=== PATIENT | male | born 1980 | race Hispanic/Latino ===

== ENCOUNTER 2017-07-12 10:38 | Day surgery (SDC) | payer SELFPAY ==
[~2017-07-12] VITALS: Ht 160 cm; Wt 57.2 kg
[~2017-07-12 10:38] MED LIST: ALUM-MAG HYDRO360 ML PO; AMBIEN10 MG PO; ARTIFICIALS TEA30 ML BOTH EYES; ASPERCREME L177.4 ML TP; BISAC-EVAC10 MG PR; CALMOSEPTINE O3.5 GM TP; CARVEDILOL3.125 MG PO; COLACE100 MG PO; CYMBALTA60 MG PO; DESYREL 150 MG150 MG PO; DITROPAN5 MG PO; DORIBAX500 MG IV; DULCOLAX10 MG PR; FLECTOR 1.3%1 PATC1 TD; FLEET ENEMA-AD118 ML PR; GLUCOPHAGE XR750 MG PO; HUMULIN R100 UNITS/ SC; Heparin Sodium SC; LANTUS 3 M100 UNITS1 SC; LIORESAL I500 MCG/1 IT; MELOXICAM7.5 MG PO; MIDODRINE HCL2.5 MG PO; MIRALAX17 GM PO; Maalox, Mylanta PO; NEURONTIN300 MG PO; NEURONTIN400 MG PO; NIZORAL 2% CREA15 GM TP; NIZORAL SHAMPO120 ML TP; NOVOLOG PE100 UNITS/ SC; OXYCODONE HCL10 MG PO; OXYCONTIN10 MG PO; OXYCONTIN15 MG PO; PAIN RELIEF325 MG PO; PERCOCET 5/31 TABLET PO; SENNA LAX8.6 MG PO; TOBRAMYCIN SULFATE IV; TRAMADOL HCL50 MG PO; TRAZODONE HCL100 MG PO; TYLENOL REGULA325 MG PO; Vancomycin IV; ZYRTEC10 M1 PO
[2017-07-12 10:56] LABS: POINT-OF-CARE METER ID UU14174212
[2017-07-12 11:57] LABS: METH RESISTANT S AUREUS PCR NEGATIVE (NEGATIVE)
[2017-07-12 12:00] LABS: PROBE CHECK PASS; SPECIMEN PROCESSING CONTROL PASS
[2017-07-12 12:23] VITALS: BP 135/91
[2017-07-12 15:43] LABS: POINT-OF-CARE METER ID UU13113675
[2017-07-12 16:18] VITALS: BP 120/67
[2017-07-12 16:41] VITALS: BP 126/78
[2017-07-13] MEDS ORDERED: ARTIFICIAL TEAR15 M1 BOTH EYES (14:13)
== END 2017-07-12 16:59 ==
LOC: SDC 10:38
PROVIDERS: Neurological Surgery
DX: Z45.49 Encounter for adjustment and management of other implanted nervous system device (principal); G82.50 Quadriplegia, unspecified; M62.838 Other muscle spasm; E11.9 Type 2 diabetes mellitus without complications; K21.9 Gastro-esophageal reflux disease without esophagitis; Z79.84 Long term (current) use of oral hypoglycemic drugs; Z87.828 Personal history of other (healed) physical injury and trauma
CPT/HCPCS: 82948; 87641; C1772; J0690; J2405; J3010; J3370

== ENCOUNTER 2017-07-13 02:14 | Inpatient (IN) | payer OTHER ==
[2017-07-13] VITALS (26 sets, daily range): BP systolic 57–211; BP diastolic 34–198
[~2017-07-13] VITALS: Ht 162.6 cm; Wt 60.8 kg
[2017-07-13 03:32] LABS: ADD MIUA? YES; BILIRUBIN NEGATIVE; BLOOD LARGE; COLOR YELLOW ((YELLOW)); GLUCOSE (STRIP) 50; KETONES NEGATIVE; LEUKOCYTES LARGE; NITRITE POSITIVE; PROTEIN (STRIP) 100; SPECIFIC GRAVITY 1.005 (1.000-1.030); UROBILINOGEN 0.2 MG/DL (0.2-1.0)
[2017-07-13 03:51] LABS: AMORPHOUS PHOSPHATE CRYSTALS 2+; BACTERIA 1+ /HPF; CRYSTALS PRESENT; EPITHELIAL CELLS 1+ /HPF; MUCUS 2+ /LPF; UCUL ADDED? YES; WHITE BLOOD CELLS 15-20 /HPF (0-5)
[2017-07-13 03:58] LABS: EOSINOPHIL (%) 0.1 % (0-5); HEMATOCRIT 58.4 % (38.0-50.0); IMMATURE GRANULOCYTE (%) 0.4 % (0.0-0.7); IMMATURE GRANULOCYTE COUNT 0.1 K/uL; INSTRUMENT ABS NEUTROPHIL CT 17.3 K/uL; LYMPHOCYTE COUNT 1.2 K/uL (1.0-2.8); MCH 29.4 PG (29.0-34.0); MCV 91.8 FL (86-99); MEAN PLAT.VOLUME 10.5 uM^3 (9.0-12.4); MONOCYTE (%) 4.9 % (3-12); NEUTROPHIL (%) 88.2 % (45-76); NEUTROPHIL COUNT 17.3 K/uL (1.8-6.4); PLATELET COUNT 288 K/uL (156-360); RBC DIS.WIDTH-CV 13.2 % (11.8-14.6); RBC DIS.WIDTH-SD 44.8 % (39-53); RED BLOOD COUNT 6.36 M/uL (4.00-5.50); WHITE BLOOD COUNT 19.6 K/uL (4.1-10.2)
[2017-07-13 05:42] LABS: ANION GAP 10 MEQ/L (2-14); CHLORIDE 102 MEQ/L (99-109); GFR ESTIMATE (CALCULATED) > 59 mL/min/; GLUCOSE 188 mg/dL (70-99); POTASSIUM 3.7 MEQ/L (3.7-5.4); SAMPLE HEMOLYSIS CHECK 0; SAMPLE ICTERIC CHECK 0; SAMPLE LIPEMIA CHECK 0; SODIUM 139 MEQ/L (136-147); UREA NITROGEN (BUN) 6 mg/dL (9-23)
[2017-07-13 09:23] LABS: METH RESISTANT S AUREUS PCR NEGATIVE (NEGATIVE)
[2017-07-13 09:24] LABS: PROBE CHECK PASS; SPECIMEN PROCESSING CONTROL PASS
[2017-07-13 11:48] LABS: POINT-OF-CARE METER ID UU13113731
[2017-07-13] MEDS ORDERED: ARTIFICIAL TEAR15 M1 BOTH EYES (14:13)
[2017-07-13 14:14] LABS: EOSINOPHIL (%) 0.3 % (0-5); EOSINOPHIL COUNT 0.1 K/uL (0-0.3); HEMATOCRIT 45.2 % (38.0-50.0); IMMATURE GRANULOCYTE (%) 0.3 % (0.0-0.7); IMMATURE GRANULOCYTE COUNT 0.1 K/uL; INSTRUMENT ABS NEUTROPHIL CT 12.6 K/uL; LYMPHOCYTE COUNT 1.9 K/uL (1.0-2.8); MCHC 31.4 G/DL (30.0-36.0); MCV 95.6 FL (86-99); MEAN PLAT.VOLUME 10.2 uM^3 (9.0-12.4); MONOCYTE (%) 5.4 % (3-12); MONOCYTE COUNT 0.8 K/uL (0-0.8); NEUTROPHIL (%) 81.5 % (45-76); NEUTROPHIL COUNT 12.6 K/uL (1.8-6.4); PLATELET COUNT 233 K/uL (156-360); RBC DIS.WIDTH-CV 13.5 % (11.8-14.6); WHITE BLOOD COUNT 15.5 K/uL (4.1-10.2)
[2017-07-13 14:16] LABS: RED BLOOD COUNT 4.73 M/uL (4.00-5.50)
[2017-07-13 14:50] LABS: POINT-OF-CARE METER ID UU13113731
[2017-07-13 18:17] LABS: POINT-OF-CARE METER ID UU13113731
[2017-07-13 22:05] LABS: POINT-OF-CARE METER ID UU14208751
[2017-07-14] VITALS (28 sets, daily range): BP systolic 62–177; BP diastolic 34–107
[2017-07-14 03:35] LABS: POINT-OF-CARE METER ID UU13113748
[2017-07-14 04:47] LABS: HEMATOCRIT 39.8 % (38.0-50.0); MCH 30.1 PG (29.0-34.0); MCHC 31.7 G/DL (30.0-36.0); MCV 95.2 FL (86-99); MEAN PLAT.VOLUME 10.5 uM^3 (9.0-12.4); PLATELET COUNT 197 K/uL (156-360); RBC DIS.WIDTH-CV 13.7 % (11.8-14.6); RBC DIS.WIDTH-SD 48.2 % (39-53); RED BLOOD COUNT 4.18 M/uL (4.00-5.50); WHITE BLOOD COUNT 10.6 K/uL (4.1-10.2)
[2017-07-14 05:01] LABS: CHLORIDE 110 mEq/L (99-109); POTASSIUM 3.7 mEq/L (3.7-5.4); SODIUM 141 mEq/L (136-147)
[2017-07-14 05:05] LABS: ANION GAP 10 MEQ/L (2-14)
[2017-07-14 05:07] LABS: GFR ESTIMATE (CALCULATED) > 59 mL/min/
[2017-07-14 05:08] LABS: UREA NITROGEN (BUN) 8 mg/dL (9-23)
[2017-07-14 05:10] LABS: GLUCOSE 110 mg/dL (70-99)
[2017-07-14 10:09] LABS: MAGNESIUM 1.6 mg/dL (1.3-2.7)
[2017-07-14 11:51] LABS: POINT-OF-CARE METER ID UU13113748
[2017-07-14 16:26] LABS: POINT-OF-CARE METER ID UU13113748
[2017-07-14 22:21] LABS: POINT-OF-CARE METER ID UU13113748
[2017-07-15] VITALS (13 sets, daily range): BP systolic 106–137; BP diastolic 73–94
[2017-07-15 09:08] LABS: POINT-OF-CARE METER ID UU13113731
[2017-07-15 10:55] LABS: MCH 29.7 PG (29.0-34.0); MCHC 32.4 G/DL (30.0-36.0); MCV 91.6 FL (86-99); PLATELET COUNT 187 K/uL (156-360); RBC DIS.WIDTH-CV 13.3 % (11.8-14.6); RBC DIS.WIDTH-SD 44.9 % (39-53); RED BLOOD COUNT 4.04 M/uL (4.00-5.50); WHITE BLOOD COUNT 5.5 K/uL (4.1-10.2)
[2017-07-15 11:17] LABS: ANION GAP 8 MEQ/L (2-14); CHLORIDE 106 MEQ/L (99-109); GFR ESTIMATE (CALCULATED) > 59 mL/min/; POTASSIUM 3.3 MEQ/L (3.7-5.4); SAMPLE HEMOLYSIS CHECK 0; SAMPLE ICTERIC CHECK 0; SAMPLE LIPEMIA CHECK 0; SODIUM 141 MEQ/L (136-147); UREA NITROGEN (BUN) 5 mg/dL (9-23)
[2017-07-15 11:22] LABS: GLUCOSE 203 mg/dL (70-99)
[2017-07-15 11:33] LABS: VANCOMYCIN, TROUGH 8.4 MCG/ML (10-20)
[2017-07-15 12:02] LABS: POINT-OF-CARE METER ID UU14208751
== END 2017-07-15 14:50 | DRG 698 ==
LOC: EME → EDBD 02:14 → EME 02:14 → 4WEST 06:02 → EDOF 06:02 → 4WEST 06:02 → ENRESERV 06:04 → 4WEST 07:25
PROVIDERS: Emergency Medicine; Internal Medicine Critical Care Medicine; Specialist
DX: T83.511A Infection and inflammatory reaction due to indwelling urethral catheter, initial encounter (principal); N30.00 Acute cystitis without hematuria; B95.2 Enterococcus as the cause of diseases classified elsewhere; B96.4 Proteus (mirabilis) (morganii) as the cause of diseases classified elsewhere; A41.9 Sepsis, unspecified organism; R65.21 Severe sepsis with septic shock; G93.41 Metabolic encephalopathy; E87.2 Acidosis; G90.4 Autonomic dysreflexia; I95.9 Hypotension, unspecified; G82.52 Quadriplegia, C1-C4 incomplete; S14.104S Unspecified injury at C4 level of cervical spinal cord, sequela; Z86.14 Personal history of Methicillin resistant Staphylococcus aureus infection; V89.2XXS Person injured in unspecified motor-vehicle accident, traffic, sequela; N31.9 Neuromuscular dysfunction of bladder, unspecified; G43.909 Migraine, unspecified, not intractable, without status migrainosus; E11.9 Type 2 diabetes mellitus without complications; G89.29 Other chronic pain; M54.9 Dorsalgia, unspecified; K21.9 Gastro-esophageal reflux disease without esophagitis
CPT/HCPCS: 71010; 72131; 74176; 80048; 80202; 81003; 82948; 83605; 83735; 85025; 85025 91; 85027; 87040; 87077; 87081; 87086; 87186; 87641; 87801; 90686; 93005; 94799; 99281; 99284; J0295; J0692; J1650; J1815; J1885; J2060; J2405; J2543; J3010; J3243; J3370; J3475; J7030; J7050

== ENCOUNTER 2017-09-10 23:02 | Inpatient (IN) | payer OTHER ==
[~2017-09-10] VITALS: Ht 165.1 cm; Wt 57.3 kg
[~2017-09-10 23:02] MED LIST changes: +ARTIFICIAL TEAR15 M1 BOTH EYES
[2017-09-10 23:44] LABS: ADD MIUA? YES; BILIRUBIN NEGATIVE; BLOOD LARGE; COLOR YELLOW ((YELLOW)); GLUCOSE (STRIP) NEGATIVE; KETONES NEGATIVE; LEUKOCYTES LARGE; NITRITE NEGATIVE; PROTEIN (STRIP) 30; SPECIFIC GRAVITY 1.004 (1.000-1.030); UROBILINOGEN 0.2 MG/DL (0.2-1.0)
[2017-09-10 23:51] LABS: BASOPHIL COUNT 0.1 K/uL (0-0.1); EOSINOPHIL (%) 1.8 % (0-5); EOSINOPHIL COUNT 0.2 K/uL (0-0.3); HEMATOCRIT 50.6 % (38.0-50.0); IMMATURE GRANULOCYTE (%) 0.3 % (0.0-0.7); INSTRUMENT ABS NEUTROPHIL CT 8.2 K/uL; LYMPHOCYTE COUNT 3.4 K/uL (1.0-2.8); MCHC 32.2 G/DL (30.0-36.0); MCV 93.2 FL (86-99); MONOCYTE (%) 7.8 % (3-12); NEUTROPHIL (%) 63.7 % (45-76); NEUTROPHIL COUNT 8.2 K/uL (1.8-6.4); PLATELET COUNT 260 K/uL (156-360); RBC DIS.WIDTH-CV 13.6 % (11.8-14.6); RBC DIS.WIDTH-SD 45.9 % (39-53); RED BLOOD COUNT 5.43 M/uL (4.00-5.50); WHITE BLOOD COUNT 12.9 K/uL (4.1-10.2)
[2017-09-11] VITALS (19 sets, daily range): BP systolic 79–212; BP diastolic 49–117
[2017-09-11 00:13] LABS: CHLORIDE 107 mEq/L (99-109); SODIUM 139 mEq/L (136-147)
[2017-09-11 00:15] LABS: GLUCOSE 96 mg/dL (70-99); TROP-I INTERPRETATION NEGATIVE; TROPONIN-I < 0.01 ng/mL (0.0-0.30)
[2017-09-11 00:16] LABS: ANION GAP 13 MEQ/L (2-14)
[2017-09-11 00:17] LABS: TOTAL BILIRUBIN 0.5 mg/dL (0.0-1.0)
[2017-09-11 00:19] LABS: ALKALINE PHOSPHATASE 75 IU/L (3-129); GFR ESTIMATE (CALCULATED) > 59 mL/min/
[2017-09-11 00:20] LABS: UREA NITROGEN (BUN) 9 mg/dL (9-23)
[2017-09-11 00:24] LABS: BACTERIA 2+ /HPF; CASTS NONE SEEN /LPF; CRYSTALS NONE SEEN; EPITHELIAL CELLS 1+ /HPF; MUCUS NONE SEEN /LPF; RED BLOOD CELLS NONE SEEN /HPF (0-5); UCUL ADDED? YES; WHITE BLOOD CELLS TNTC /HPF (0-5)
[2017-09-11] MEDS ORDERED: LOPRESSOR50 MG PO (09:11)
[2017-09-11] MEDS ORDERED: GABAPENTIN600 MG PO (09:27)
[2017-09-11 09:44] LABS: METH RESISTANT S AUREUS PCR NEGATIVE (NEGATIVE); PROBE CHECK PASS; SPECIMEN PROCESSING CONTROL PASS
[2017-09-11 12:51] LABS: POINT-OF-CARE METER ID UU14314082; POINT-OF-CARE USER ID 612031313
[2017-09-11 17:48] LABS: POINT-OF-CARE METER ID UU14314082; POINT-OF-CARE USER ID 612031313
[2017-09-11 21:41] LABS: POINT-OF-CARE METER ID UU14314082
[2017-09-12] VITALS (11 sets, daily range): BP systolic 84–135; BP diastolic 47–93
[2017-09-12 06:30] LABS: EOSINOPHIL (%) 3.8 % (0-5); EOSINOPHIL COUNT 0.2 K/uL (0-0.3); HEMATOCRIT 41.6 % (38.0-50.0); IMMATURE GRANULOCYTE (%) 0.2 % (0.0-0.7); INSTRUMENT ABS NEUTROPHIL CT 3.4 K/uL; LYMPHOCYTE COUNT 1.7 K/uL (1.0-2.8); MCH 29.6 PG (29.0-34.0); MCHC 31.7 G/DL (30.0-36.0); MCV 93.3 FL (86-99); MEAN PLAT.VOLUME 10.4 uM^3 (9.0-12.4); MONOCYTE (%) 6.1 % (3-12); MONOCYTE COUNT 0.4 K/uL (0-0.8); NEUTROPHIL (%) 59.4 % (45-76); NEUTROPHIL COUNT 3.4 K/uL (1.8-6.4); PLATELET COUNT 232 K/uL (156-360); RBC DIS.WIDTH-CV 13.6 % (11.8-14.6); RBC DIS.WIDTH-SD 46.7 % (39-53); RED BLOOD COUNT 4.46 M/uL (4.00-5.50); WHITE BLOOD COUNT 5.8 K/uL (4.1-10.2)
[2017-09-12 06:48] LABS: ANION GAP 11 MEQ/L (2-14); CHLORIDE 103 MEQ/L (99-109); GFR ESTIMATE (CALCULATED) > 59 mL/min/; GLUCOSE 130 mg/dL (70-99); POTASSIUM 3.6 MEQ/L (3.7-5.4); SAMPLE HEMOLYSIS CHECK 0; SAMPLE ICTERIC CHECK 0; SAMPLE LIPEMIA CHECK 0; SODIUM 143 MEQ/L (136-147); UREA NITROGEN (BUN) 4 mg/dL (9-23)
[2017-09-12 12:32] LABS: POINT-OF-CARE METER ID UU14174217
[2017-09-12 15:55] LABS: POINT-OF-CARE METER ID UU13113803
[2017-09-12 21:40] LABS: POINT-OF-CARE METER ID UU14174217
[2017-09-13] VITALS: BP 93/52
[2017-09-13 04:00] VITALS: BP 122/74
[2017-09-13 07:32] LABS: POINT-OF-CARE METER ID UU14208751
[2017-09-13 08:00] VITALS: BP 119/84
[2017-09-13 08:07] LABS: GFR ESTIMATE (CALCULATED) > 59 mL/min/; UREA NITROGEN (BUN) 4 mg/dL (9-23)
[2017-09-13 10:00] VITALS: BP 111/80
== END 2017-09-13 10:17 | DRG 662 ==
LOC: EME → EDBD 23:02 → EDOF 09-11 06:03 → 4WEST 09-11 06:03 → ENRESERV 09-11 06:05 → 4WEST 09-11 08:07
PROVIDERS: Emergency Medicine; Hospitalist
PROC: 0TW Urinary System, Revision (ICD-10-PCS; principal; 2017-09-11)
DX: T83.511A Infection and inflammatory reaction due to indwelling urethral catheter, initial encounter (principal); N39.0 Urinary tract infection, site not specified; T83.028A Displacement of other urinary catheter, initial encounter; Y73.8 Miscellaneous gastroenterology and urology devices associated with adverse incidents, not elsewhere classified; G82.50 Quadriplegia, unspecified; S12.300S Unspecified displaced fracture of fourth cervical vertebra, sequela; I10 Essential (primary) hypertension; G90.4 Autonomic dysreflexia; N31.9 Neuromuscular dysfunction of bladder, unspecified; I95.9 Hypotension, unspecified; Z93.0 Tracheostomy status; R00.1 Bradycardia, unspecified; E11.9 Type 2 diabetes mellitus without complications; G89.29 Other chronic pain; M54.9 Dorsalgia, unspecified; K21.9 Gastro-esophageal reflux disease without esophagitis; Z86.14 Personal history of Methicillin resistant Staphylococcus aureus infection; Z87.820 Personal history of traumatic brain injury; Z98.1 Arthrodesis status; Z96.89 Presence of other specified functional implants
CPT/HCPCS: 70450; 71010; 74177; 80048; 80053; 81003; 82565; 82948; 83605; 84484; 84520; 85025; 87040; 87077; 87081; 87086; 87641; 93005; 99281; 99285; J0692; J0696; J1650; J1815; J7030